=== PATIENT | female | born 1985 | race Caucasian/White ===

== ENCOUNTER 2017-10-02 18:00 | Emergency (ER) | payer OTHER ==
[~2017-10-02] VITALS: Ht 177.8 cm; Wt 95.7 kg
[~2017-10-02 18:00] MED LIST: FLEXERIL10 MG PO; NABUMETONE750 MG PO
== END 2017-10-02 19:48 | disposition home or self-care (01) ==
LOC: ER 18:00
DX: S61.211A Laceration without foreign body of left index finger without damage to nail, initial encounter (principal); W26.0XXA Contact with knife, initial encounter; Y93.89 Activity, other specified; Y92.090 Kitchen in other non-institutional residence as the place of occurrence of the external cause; Y99.8 Other external cause status; J45.998 Other asthma
CPT/HCPCS: 94640; G0168